=== PATIENT | male | born 1990 | race Caucasian/White ===

== ENCOUNTER 2016-08-29 07:52 | Emergency (ER) | payer OTHER ==
[2016-08-29 07:59] VITALS: BP 147/98; PULSE 83; TEMP 97.8; BMI 27.2
--- NOTE | 2016-08-29 07:59 | PDOC ---
History of Present Illness - General Chief Complaint: Pain, Acute Stated Complaint: WOKE UP WITH NECK/SHOULDER PAIN YESTERDAY Time Seen by Provider: 08/29/16 07:53 History Source: Patient Exam Limitations: No Limitations - History of Present Illness Initial Comments: 26 yo M no significant prior medical history presents with abrupt onset neck pain since yesterday. He states that his allergies were acting up, he had a fit of sneezing, and during that, he strained a muscle in his neck. Immediately after, he felt a spasm in the left side of his neck, worse with movement. Pain waxes and wanes. No weakness, no numbness. No other injuries. No pain in the arms. Past History - Past Medical History Allergies/Adverse Reactions: Allergies Allergy/AdvReac Type Severity Reaction Status Date / Time Penicillins Allergy Intermediate Verified 08/29/16 07:53 Home Medications: Ambulatory Orders No Home Medications 0 dose .ROUTE UTDICT 10/05/12 Diazepam [Valium] 5 mg PO Q6H PRN #12 tablet MDD 4 tabs 08/29/16 Ibuprofen [Motrin -] 600 mg PO TID PRN #21 tablet 08/29/16 Other medical history: DENIES - Immunization History Immunization Up to Date: No - Psycho/Social/Smoking Cessation Hx Anxiety: No Suicidal Ideation: No Smoking Status: Yes Smoking History: Current some day smoker Have you smoked in the past 12 months: Yes Number of Cigarettes Smoked Daily: 10 Information on smoking cessation initiated: Yes 'Breaking Loose' booklet given: 08/29/16 Hx Alcohol Use: Yes (SOCIAL) Drug/Substance Use Hx: No Substance Use Type: None Review of Systems - Review of Systems Able to Perform ROS?: Yes Comments:: GENERAL/CONSTITUTIONAL: No fever or chills. No weakness. HEAD, EYES, EARS, NOSE AND THROAT: No change in vision. No ear pain or discharge. No sore throat. MUSCULOSKELETAL: No joint or muscle swelling or pain. +Neck pain. SKIN: No rash NEUROLOGIC: No headache, vertigo, loss of consciousness, or change in strength/ sensation. *Physical Exam - Vital Signs Last Vital Signs Temp Pulse Resp BP Pulse Ox 97.8 F 83 16 147/98 100 08/29/16 07:55 08/29/16 07:55 08/29/16 07:55 08/29/16 07:55 08/29/16 07:55 - Physical Exam Comments: GENERAL: Awake, alert, and fully oriented, in no acute distress HEAD: No signs of trauma EYES: PERRLA, EOMI, sclera anicteric, conjunctiva clear ENT: Auricles normal inspection, hearing grossly normal, nares patent, oropharynx clear without exudates. Moist mucosa NECK: Dec ROM on left side due to pain. +Palpable muscle spasm at the base of the L trapezius muscles. Supple, no lymphadenopathy, JVD, or masses EXTREMITIES: Normal range of motion, no edema. No clubbing or cyanosis. No cords , erythema, or tenderness NEUROLOGICAL: Cranial nerves II through XII grossly intact. Normal speech, normal gait. Strength and sensation intact. SKIN: Warm, Dry, normal turgor, no rashes or lesions noted. Medical Decision Making - Medical Decision Making 08/29/16 10:20 After robaxin patient stated that he did not have any relief. However, with 5 mg valium PO he has improved ROM of his neck. Stable for DC home. *DC/Admit/Observation/Transfer Diagnosis at time of Disposition: Muscle spasms of neck - Discharge Dispostion Disposition: HOME Condition at time of disposition: Stable Admit: No - Prescriptions Prescriptions: Ibuprofen [Motrin -] 600 mg PO TID PRN #21 tablet PRN Reason: Pain Diazepam [Valium] 5 mg PO Q6H PRN #12 tablet MDD 4 tabs PRN Reason: Muscle Spasms - Patient Instructions Printed Discharge Instructions: DI for Muscle Strain
[2016-08-29] MEDS ORDERED: METHOCARBAMOL 500 MG TABLET PO ONE (08:17)
[2016-08-29] MEDS ORDERED: METHOCARBAMOL 500 MG TABLET ONE (08:21)
[2016-08-29] MEDS ORDERED: diazePAM 5 MG TABLET PO ONE (09:14)
[2016-08-29] MEDS ORDERED: diazePAM 5 MG TABLET ONE (09:16)
== END 2016-08-29 10:32 | disposition home or self-care (01) ==
LOC: FER 07:52
DX: M62.838 Other muscle spasm (principal); F17.210 Nicotine dependence, cigarettes, uncomplicated
CPT/HCPCS: 99281-25

== ENCOUNTER 2020-07-06 18:25 | Emergency (ER) | payer OTHER ==
[2020-07-06 18:36] VITALS: BP 156/98; PULSE 116; TEMP 97.8; BMI 29.5
[2020-07-06] MEDS ORDERED: MAGNESIUM CITRATE 300 ML BOTTLE PO ONE (19:46)
[2020-07-06] MEDS ORDERED: MAGNESIUM CITRATE 300 ML BOTTLE ONE (19:49)
== END 2020-07-06 20:00 | disposition home or self-care (01) ==
LOC: FER 18:25
DX: K59.00 Constipation, unspecified (principal)
CPT/HCPCS: 99283-25